=== PATIENT | female | born 1985 | race Caucasian/White ===

== ENCOUNTER 2019-02-01 22:49 | Emergency (ER) | payer MEDICAID ==
[~2019-02-01] VITALS: Ht 162.6 cm; Wt 78.0 kg
[2019-02-01 22:50] VITALS: BP 119/69
--- NOTE | 2019-02-01 22:53 | NUR ---
TO LOBBY A/W BED AMBULATORY
--- NOTE | 2019-02-01 23:33 | NUR ---
PT AMBULATED TO BED 3
--- NOTE | 2019-02-01 23:38 | NUR ---
PT CAME INTO ER WITH C/O VAG BLEEDING X 1 DAY. PT STATED SHE HAS BEEN HAVING LOWER ABD PAIN RADIATING TO HER BACK SINCE YESTERDAY. PT STATED SHE IS 9 WEEKS LMP DECEMBER 14. PT IS A/OX4. NKA. AYDEE MADE AWARE OF STATUS, SAFTEY MEASURES IN PLACE.
[2019-02-02 00:13] LABS: BASOPHILS % (AUTO) 0.3 % (0.0-2.0); BILIRUBIN,URINE 1+ (NEGATIVE); BLOOD, URINE 3+ (NEGATIVE); EOSINOPHILS # (AUTO) 0.1 K/uL (0-0.4); EOSINOPHILS % (AUTO) 1.5 % (0.0-4.0); HEMATOCRIT 35.5 % (36-48); HEMOGLOBIN 12.4 g/dL (12.0-16.0); LEUKOCYTE ESTERASE ,URINE TRACE (NEGATIVE); LYMPHOCYTES # (AUTO) 2.3 K/uL (2.5-16.5); LYMPHOCYTES % (AUTO) 33.2 % (20.5-51.1); MEAN CORPUSCULAR HEMOGLOBIN 30 pg (27-31); MEAN CORPUSCULAR HGB CONC 35 g/dL (33-37); MEAN CORPUSCULAR VOLUME 84.4 fL (80-94); MONOCYTES # (AUTO) 0.5 K/uL (0.8-1.0); MONOCYTES % (AUTO) 6.7 % (1.7-9.3); NEUTROPHILS # (AUTO) 4.1 K/uL (1.8-7.7); NEUTROPHILS % (AUTO) 58.3 % (42.2-75.2); NITRITE, URINE NEGATIVE (NEGATIVE); PLATELET COUNT (AUTO) 185 K/uL (140-450); RED BLOOD CELL COUNT(AUTO) 4.21 MIL/uL (4.20-5.40); RED CELL DISTRIBUTION WIDTH 12.4 % (11.6-13.7); UGLUCOSE NEGATIVE (NEGATIVE)
--- NOTE | 2019-02-02 00:34 | NUR ---
ULTRASOUND AT BEDSIDE
[2019-02-02 00:39] LABS: APPEARANCE,URINE BLOODY (CLEAR); COLOR,URINE BLOODY (YELLOW)
[2019-02-02 00:41] LABS: RBC,URINE TOO NUMEROUS TO COUN /HPF (0-5)
--- NOTE | 2019-02-02 00:49 | NUR ---
PT RESTING IN BED COMFORTABLY ON CELL PHONE. REPOSITIONED PT FOR COMFORT. WILL CONTINUE TO MONITOR.
--- NOTE | 2019-02-02 02:08 | NUR ---
ERMD AT BEDSIDE
--- NOTE | 2019-02-02 02:32 | NUR ---
Patient discharged with v/s stable. Written and verbal after care instructions given and explained. Pt encouraged to follow up with OBGYN and drink plenty of fluids until urine is clear. Patient alert, oriented and verbalized understanding of instructions. Ambulatory with steady gait. All questions addressed prior to discharge. ID band removed. Patient advised to follow up with PMD. Rx of MACROBID AND ZOFRAN was given. Patient educated on indication of medication including possible reaction and side effects. Opportunity to ask questions provided and answered.
[2019-02-02 02:33] VITALS: BP 112/66
== END 2019-02-02 02:32 | disposition home or self-care (01) ==
LOC: MED 22:49
DX: O20.0 Threatened abortion (principal); O23.41 Unspecified infection of urinary tract in pregnancy, first trimester; Z3A.01 Less than 8 weeks gestation of pregnancy
CPT/HCPCS: 36415; 76817; 81001; 81025; 84702; 85025; 86900; 86901; 87086; 99284; Q0092

== ENCOUNTER 2023-06-13 03:30 | Emergency (ER) | payer MEDICAID ==
[~2023-06-13] VITALS: Ht 162.6 cm; Wt 90.7 kg
[2023-06-13 03:40] VITALS: BP 106/82; PULSE 86; RESP 16; TEMP 98; O2SAT 99
[2023-06-13] MEDS ORDERED: LIDOCAINE 5% 1 EA PATCH TP ONE (05:30)
[2023-06-13] MEDS ORDERED: KETOROLAC 30 MG/ML VIAL IM ONE (05:30)
[2023-06-13] MEDS ORDERED: DICL20GE TP (06:01)
[2023-06-13] MEDS ORDERED: LID5T TP (06:01)
[2023-06-13] MEDS ORDERED: CYCL-711 PO (06:01)
[2023-06-13] MEDS ORDERED: ACET-2619 PO (06:01)
[2023-06-13 07:35] LABS: BASOPHILS % (AUTO) 0.5 % (0.0-2.0); EOSINOPHILS # (AUTO) 0.1 K/uL (0-0.4); EOSINOPHILS % (AUTO) 1.4 % (0.0-4.0); HEMOGLOBIN 13.9 g/dL (12.0-16.0); LYMPHOCYTES # (AUTO) 2.4 K/uL (2.5-16.5); LYMPHOCYTES % (AUTO) 33.6 % (20.5-51.1); MEAN CORPUSCULAR HEMOGLOBIN 28 pg (27-31); MEAN CORPUSCULAR HGB CONC 35 g/dL (33-37); MEAN CORPUSCULAR VOLUME 81.9 fL (80-94); MONOCYTES # (AUTO) 0.3 K/uL (0.8-1.0); MONOCYTES % (AUTO) 4.6 % (1.7-9.3); NEUTROPHILS # (AUTO) 4.2 K/uL (1.8-7.7); NEUTROPHILS % (AUTO) 59.9 % (42.2-75.2); PLATELET COUNT (AUTO) 255 K/uL (140-450); RED BLOOD CELL COUNT(AUTO) 4.89 MIL/uL (4.20-5.40); RED CELL DISTRIBUTION WIDTH 12.9 % (11.6-13.7)
[2023-06-13 07:45] LABS: ANION GAP 13.3 (8-16); CALCIUM 8.7 mg/dL (8.5-10.1); CARBON DIOXIDE 24.4 mmol/L (21-32); CREATININE 0.6 mg/dL (0.6-1.3); POTASSIUM 4.7 mmol/L (3.5-5.1)
[2023-06-13 08:15] VITALS: BP 112/80; PULSE 80; RESP 17; TEMP 98
[2023-06-13 11:09] VITALS: O2SAT 100
== END 2023-06-13 08:15 | disposition home or self-care (01) ==
LOC: MED 03:30
DX: S29.011A Strain of muscle and tendon of front wall of thorax, initial encounter (principal); R00.2 Palpitations; I45.81 Long QT syndrome; F32.9 Major depressive disorder, single episode, unspecified; F41.9 Anxiety disorder, unspecified; Z98.890 Other specified postprocedural states; Z79.899 Other long term (current) drug therapy; X58.XXXA Exposure to other specified factors, initial encounter; Y92.89 Other specified places as the place of occurrence of the external cause; Y93.89 Activity, other specified; Y99.8 Other external cause status
CPT/HCPCS: 36415; 71046; 80048; 84484; 85025; 93005; 96374; 99285; J1885